=== PATIENT | male | born 1960 | race Caucasian/White ===

== ENCOUNTER 2020-03-27 14:55 | Inpatient (IN) | payer OTHER ==
[~2020-03-27] VITALS: Ht 182.9 cm; Wt 105.8 kg
[2020-03-27] MEDS ORDERED: HYDROXYZINE HCL50 MG PO (15:10)
--- NOTE | 2020-03-27 19:02 | NUR ---
PT HAS CALL LIGHT WITHIN REACH, VERBALIZES UNDERSTANDING OF HOW TO USE IT. TV IS ON IN THE ROOM. PT ABLE TO GABBIE PO ENSURE, DENIES NEED FOR ANYTHING ELSE TO EAT OR DRINK AT THIS TIME. STARR CULLEN AT THE BEDSIDE/ROOM SIDE X2. PT IS IN CORRECTIONAL 5 POINT RESTRAINTS, FLAT HOUSING RELOCATION CUFF STYLE. PT IS COOPERATIVE AND POLITE. PT HAS URINAL AT THE BEDSIDE.
--- NOTE | 2020-03-27 20:30 | NUR ---
PATIENT 02 SAT WAS 88% AND SO PATIENT WAS PLACED ON NC TITRATED TO 2L. O2 SAT INCREASED TO 91%.
--- NOTE | 2020-03-27 20:30 | NUR ---
PATIENT ASSESSMENT COMPLETED AND MEDS GIVEN. PATIENT RESPIRATIONS UNLABORED. IV SITE WNL AND FLUSHED WELL. PATIENT REQUESTED MILK AND STATED HE COULD NOT DRINK WATER BECAUSE IT GOES SOUR. PATIENT ORIENTED TO SELF AND PLACE. DENIED PAIN. PATIENT LEFT RESTING IN BED WITH CALL LIGHT IN REACH.
--- NOTE | 2020-03-27 22:28 | NUR ---
PATIENT VOIDED 375ML OF MINE URINE IN URINAL. PATIENT RESTING WITH EYES CLOSED. RESPIRATIONS EVEN AND UNLABORED.
--- NOTE | 2020-03-27 23:08 | NUR ---
PATIENT CARDIAC LEAD PADS CHANGED. WARM BLANKET AND MILK GIVEN. PATIENT URINAL EMPTIED OF 325 MINE URINE. PATIENT DENIED FURTHER NEEDS AND LEFT RESTING IN BED.
--- NOTE | 2020-03-28 00:15 | NUR ---
PATIENT ASSESSMENT COMPLETED. PATIENT IV SITE WNL. PATIENT SPEECH GARBLED AT TIMES. DENIES PAIN. PATIENT LEFT RESTING IN BED WITH CALL LIGHT IN REACH.
--- NOTE | 2020-03-28 08:18 | NUR ---
IV pump alarming. This nurse in to assess patient. IV fluids restarted, alarm for distal occlusion. IV site flushed. Decadron given as prescribed. Assessment completed. Denies pain at this time. States he does not want breakfast this AM as he is not hungry. [facility] restraints remain in place. Skin integrity remains intact. O2 sats on 2L/min NC O2 of 97%. O2 decreased to 1L/min per NC. Patient educated if he is feeling an increase in shortness of breath or chest tightness to inform staff so we may increase O2 for comfort. Verbalizes understanding. Current O2 sat of 95% on 1L/min of O2.
--- NOTE | 2020-03-28 09:25 | NUR ---
Head of bed elevated. Watching TV. Respirations even and unlabored on 1 L/min NC O2. IV fluids continue infusing. Call light in reach, bed rails elevated.
--- NOTE | 2020-03-28 10:09 | NUR ---
BED BATH COMPLETE. PATIENT GOT HAIR CARE, ORAL CARE, AND OBI CARE. LINENS CHANGED. PATIENT ASKED TO SIT IN CHAIR. CALL LIGHT WITHIN REACH NO FURTHER NEEDS AT THIS TIME.
--- NOTE | 2020-03-28 11:02 | NUR ---
Patient restless in room. Assist to get out of chair to bathroom. COntinent of urine and stool. Flushes, this nurse unable to assess. Returns to bed per request. Upon return to bed, patient O2 saturation 95% on room air as he removed O2 prior to ambulation. O2 left off at this time. Informed patient if O2 saturation decreases or he feels short of breath, O2 will then be replaced. Verbalizes understanding. New bag of IV fluids initiated and rate decreased to 65ml/hr as prescribed. Temp obtained. Denies other needs at this time. Call light in reach, bed rails elevated. Remains in EOCI restraints. Skin under restraints remains intact.
--- NOTE | 2020-03-28 14:05 | NUR ---
Patient lying in bed. Contines to refuse food. Food tray removed per request. Denies pain at this time. Continent of urine, urinal emptied. Assessment completed. Minimal changes from AM assessment. IV fluids continue to infuse at this time. Call light in reach. Bed rails up X2.
--- NOTE | 2020-03-28 14:48 | NUR ---
Sitting up in recliner, watching TV. Remains on room air. Respirations even and unlabored. Call light in reach.
--- NOTE | 2020-03-28 16:59 | NUR ---
Assessment completed. Denies pain. States today is the best he has felt and the most he's been out of bed. States he does not want to eat because there is a rumbling in his stomach, "it's almost like butterflies." Continues to refuse oral intake because he thinks its going to come back up. Denies other needs at htis time. Vitals signs obtained. Call light in reach.
--- NOTE | 2020-03-28 17:50 | NUR ---
Patient up in chair. Encouraged to eat, continues to refuse oral intake including food or drink. IV meds administered. Denies other needs. Remains on room air.
--- NOTE | 2020-03-28 20:00 | NUR ---
PATIENT ASSESSMENT COMPLETED. IV SITE WNL. PATIENT DENIES PAIN. THIS NURSE ENCOURAGED HIM TO EAT OR DRINK AND OFFERED A SEALED DRINK OPTION. PATIENT REFUSED AND STATED "IF I EAT OR DRINK ITS GOING TO COME UP AND I DON'T WANT IT TO". PATIENT DENIED NAUSEA AND REPORTED THAT THERE WAS SOMETHING IN HIS ABDOMEN THAT WOULD COME OUT IF HE ATE OR DRINK ANYTHING. PATIENT REPORTED SWALLOWING WHITE SPUTUM SEVERAL TIMES AFTER COUGHING. EMPTIED 300ML MINE URINE FROM URINAL. PATIENT LEFT RESTING IN BED WITH CALL LIGHT IN REACH.
--- NOTE | 2020-03-28 22:55 | NUR ---
PATIENT AMBULATED INDEPENDENTLY TO THE CHAIR TO WATCH TV. DENIED ANY NEEDS INCLUDING FOOD OR DRINK. PATIENT LEFT RESTING IN CHAIR.
--- NOTE | 2020-03-29 | NUR ---
PATIENT ASSESSMENT COMPLETED. PATIENT DENIED PAIN AND STATED THAT HE CANNOT SLEEP AND FEELS WELL. PATIENT REFUSED FOOD OR DRINK AND STATED THAT HE WOULD BE SICK IF HE ATE. PATIENT GIVEN ZOFRAN. IV SITE WNL AND FLUSHED WELL. PATIENT'S OWN SOCKS REPLACED WITH PAPER BAG MAKER SOCKS. URINAL EMPTIED OF 200ML OF MINE URINE. PATIENT LEFT RESTING IN CHAIR WITH CALL LIGHT IN REACH.
--- NOTE | 2020-03-29 00:54 | NUR ---
PATIENT WAS SHIVERING AND FIRE OFFICER ASKED FOR ASSISTANCE. PATIENT TEMP WAS 98.6. PATIENT STATED THAT HE FELT COLD INSIDE FOR A MINUTE. HE WAS GIVEN A WARM BLANKET AND STATED HE FELT WARMER. PATIENT DENIED PAIN AND ANY FURTHER NEEDS. LEFT RESTING IN BED WITH CALL LIGHT IN REACH.
--- NOTE | 2020-03-29 02:12 | NUR ---
PATIENT IS UP IN THE CHAIR AND REPORTS THAT HE IS NOT TIRED.
--- NOTE | 2020-03-29 03:15 | NUR ---
PT SLEEPING OFF AND ON IN CHAIR. IN IV PUMP ALARMING. PT AWAKENED WHEN NURSE ENTERED ROOM. STATES HE IS FEELING BETTER. FACE IS FLUSHED. T 99.1. SATS 88-89% ON RA, 02 2L LC APPLIED. SATS INC TO MID 90'S SKIN UNDER CORRECTIONAL RESTRAINTS IS INTACT.
--- NOTE | 2020-03-29 07:30 | NUR ---
Report given by Janet HAWKINS, who reports the pt requires intermittent O2 overnight. Pt desats to 88-89% while sleeping. Pt asleep on side the morning. Visualized chest rise and fall.
--- NOTE | 2020-03-29 09:00 | NUR ---
Pt was up in chair this morning and pulled 5-leads, oximeter and took BP cuff off to go to the bathroom. Pt also started pulled at IV and the guard notified Mary HAWKINS, who went into pt's room to assess site. Infiltration noted and left hand blanched and moderately swollen. RN removed IV and reported to this RN. Pt refused breakfast as well.
--- NOTE | 2020-03-29 12:25 | NUR ---
RN asked pt what he would like for lunch, pt refused saying he still feels full from the Ensure he drank for breakfast. RN encouraged him that he needs to try and eat if he's able. Pt still refused.
--- NOTE | 2020-03-29 13:34 | NUR ---
Ordered pt lunch. Pt refused and did not want an Ensure either. Pt started c/o his eyes burning. Used saline flush and pt reported eyes felt better. Pt then stated his stomach still felt "sour" and was really bothering him. He requested we check his "pH". This RN gave Maalox, and will reevaluate symptoms in 1 hr. Pt denies nausea, therefore did not give zofran at this time. Pt is still up in chair. Call light within reach.
--- NOTE | 2020-03-29 14:30 | NUR ---
DUE TO PRECAUTIONS, I AM UNABLE TO VISIT PT AT THIS TIME. WILL FOLLOW
--- NOTE | 2020-03-29 15:15 | NUR ---
Pt started pulling at IV and stated "I don't need this anymore". RN entered room and encouraged pt to leave IV in place and told pt if he's going to refuse oral fluids he really needs the IV fluids. Pt agreed for now, but will keep checking in. Pt seems irritable at times. Still refusing any food because he says "aspartame made me sick." This RN has explained that aspartame is only in sugar-free foods, and there are things he can eat that do not contain it but he still refuses the trays we've brought him.
--- NOTE | 2020-03-29 20:15 | NUR ---
PATIENT ASSESSMENT COMPLETED. PATIENT ATE 2 SHERBETS AND REQUESTED MORE MALOX. PATIENT STATED "MY DNA IS BROKEN AND MALOX RECONFIGURES MY DNA AND LOWERS MY PH. 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 LEFT HAND HAD 2+ PITTING EDEMA FROM EARLIER IV INFILTRATION. IV SITE WNL. PATIENT RECONNECTED TO MONITORS AND LEFT RESTING BED WITH CALL LIGHT IN REACH.
--- NOTE | 2020-03-29 23:51 | NUR ---
PATIENT ASSESSMENT COMPLETED. WHEN ASKED WHY HE WAS IN THE HOSPITAL, PATIENT STATED "BECAUSE OF POISONING". PATIENT EDUCATED ON CURRENT ILLNESS. REFUSED WATER, BUT AGREED TO HAVE AN ENSURE. SKIN INTACT UNDER 5 POINT RESTRAINTS. URINAL EMPTIED OF 325ML MINE URINE AND PATIENT STATED HE AMBULATED TO THE BATHROOM FOR UNMEASURED VOID EARLIER. AFEBRILE AND DENIES PAIN. PATIENT LEFT RESTING IN BED, WATCHING TV WITH CALL LIGHT IN REACH.
--- NOTE | 2020-03-30 00:40 | NUR ---
CARDIAC LEADS REMOVED AND TURNED OFF. PATIENT RESTING IN BED WITH EYES CLOSED. LEFT RESTING IN BED WITH CALL LIGHT IN REACH.
--- NOTE | 2020-03-30 05:10 | NUR ---
PATIENT LABS DRAWN AND ASSESSMENT COMPLETED. DENIES PAIN. 250ML YELLOW URINE EMPTIED FROM URINAL. WHEN ASKED WHY HE WAS IN THE HOSPITAL, PATIENT STATED "I WAS TOLD LIU VIRUS, BUT I THINK IT'S BECAUSE MY STOMACH IS SOUR". PATIENT REQUESTED MAALOX AND STATED IT HELPED HIS SALIVA TURN INTO WATER. AT TIMES HAD GARBLED SPEECH THAT WAS INCOHERENT. PATIENT DRANK ENSURE AND AND REQUESTED BREAKFAST. LEFT RESTING IN BED WITH CALL LIGHT IN REACH.
--- NOTE | 2020-03-30 07:55 | NUR ---
PT UP TO BATHROOM. VOIDED 300 MLS OF MINE URINE. REPORTS HE SLEPT WELL LAST NIGHT. PO INTAKE HAS IMPROVED. EATING ICE CREAM AND DRINKING ENSURES. VSS. PT IS WITHOUT COMPLAINT AT THIS TIME. CALL LIGHT WITHIN REACH.
--- NOTE | 2020-03-30 09:30 | NUR ---
Pt's appetite has much improved. He ate 100% of a large breakfast and drank 240 mls of the milk on his tray. On 1 L O2 NC sating mid 90's. Lungs are clear. VSS. Active bowel tones. Voiding well. Independent in room. Pt remains without complaint at this time.
--- NOTE | 2020-03-30 10:18 | NUR ---
PT RRECEIVING TREATMENT FOR COVID-19, UNABLE TO VISIT. [facility] GUARDS AT DOOR. WILL FOLLOW ABLE
--- NOTE | 2020-03-30 10:30 | NUR ---
Lab called at 1025 to report positive blood cultures (growth of gram+ cocci in clusters from aerobic bottle). Results called to Dr. Tong at 1027, who ordered blood cultures redrawn.
--- NOTE | 2020-03-30 11:00 | NUR ---
Blood cultures redrawn and sent to lab. Site 1 drawn from LFA with 22 g IV start. Site 2 from LAC. Pt tolerated well.
--- NOTE | 2020-03-30 14:00 | NUR ---
Update from Rn and Dr. Tong. Plan for dc tomorrow. Pt is on . Will receive last dose of remdesivir in AM.
--- NOTE | 2020-03-30 16:22 | NUR ---
Called and updated Adriana at [facility]. She said to plan for midmorning dc. She will call me if there is a change, but pt is good to return [facility] tomorrow midmorning.
--- NOTE | 2020-03-30 17:21 | NUR ---
Pt has been up in chair all afternoon watching television. Took pt tray in. LR running at 75 mls/hr. Pt is without complaint. Call light within reach.
--- NOTE | 2020-03-30 20:00 | NUR ---
V/S ARE WDL, ALL LOBES ARE CLEAR BUT DIMINISHED, URINE OUTPUT IS GOOD, PT ON RA, NO NEW ISSUES NOTED.
--- NOTE | 2020-03-30 21:35 | NUR ---
PT MOVED TO ROOM 117. REPORT GIVEN TO LUIS HAWKINS.
--- NOTE | 2020-03-30 21:45 | NUR ---
Patient arrives to unit via hospital bed. Vital signs taken, assessment complete. Fluids infusing at 75 mls/hr. Patient denies pain or SOB. Patient on RA with an SpO2 of 94%. Patient oriented to room, fresh water provided. One district fire management officer in room at bedside, five-point restraints in place. Call light within reach.
--- NOTE | 2020-03-30 23:20 | NUR ---
Patient laying in bed watching tv. Fluids infusing at 75 mls/hr. Five-point correctional restraints in place, one division officer weapons department in room at bedside. Patient on RA, SpO2 of 94%. Denies needs, call light within reach.
--- NOTE | 2020-03-31 01:02 | NUR ---
Patient sleeping in bed on left side, respirations even and unlabored. Patient on RA with an SpO2 of 94%. Five-point restraints in place, two correctional sitting outside of room. Fluids infusing at 75 mls/hr. Call light within reach.
--- NOTE | 2020-03-31 02:00 | NUR ---
Patient sleeping in bed on left side, respirations even and unlabored. Patient on RA, SpO2 of 95%. Five-point restraints in place, two correctional officers sitting outside of room. Fluids infusing at 75 mls/hr, call light within reach.
--- NOTE | 2020-03-31 03:29 | NUR ---
Patient sleeping in bed, respirations even and unlabored. New bag of LR hung, infusing at 75 mls/hr. Urinal emptied of 900 mls of yellow urine. Five-point restraints in place, one police officer booking in room at bedside. Call light within reach.
--- NOTE | 2020-03-31 04:53 | NUR ---
Patient laying in bed watching tv. SpO2 of 93% on RA. Five-point restraints in place, two correctional officers sitting outside of room. Call light within reach.
--- NOTE | 2020-03-31 05:30 | NUR ---
Patient sleeping in bed, respirations even and unlabored. SpO2 of 94% on RA. Rouses easily to voice. Vital signs taken, assessment complete. Lung sounds dim in bases. Blood drawn and sent off to lab. Fluids infusing at 75 mls/hr. Five-point restraints in place, one banking services officer in room at bedside. Urinal emptied with 475 mls of yellow urine. Patient denies needs at this time, call light within reach.
--- NOTE | 2020-03-31 09:10 | NUR ---
Call from Adriana at [facility], pt can return to [facility] today. This phone call was followed by a phone call from Jeanie Reeves at [facility]. Updated given and as pt is no longer on he can return to [facility]. Plan to dc midmorning following remdesivir and visit by . Meena will call nurse to nurse report. Call from Adriana stating pt, can return to [facility]. Nurses updated and will call report.
--- NOTE | 2020-03-31 09:28 | NUR ---
this rn in pts room to give morning meds and to do morning assessment. pt more worried about if his iv flushes than anything else this am. pt states he has no shortness of breath at this time. oxygenation 95% on room air.
[2020-03-31] MEDS ORDERED: DEXAMETHASONE6 MG PO (10:13)
[2020-03-31] MEDS ORDERED: MAALOX MAXIMUM355 ML PO (10:15)
== END 2020-03-31 11:10 | disposition home or self-care (01) | DRG 177 ==
LOC: ED 14:55 → CCU 17:31 → MS 03-30 21:45
PROVIDERS: ADMIT Internal Medicine; ATTEND Internal Medicine
PROC: XW033E5 Introduction of Remdesivir Anti-infective into Peripheral Vein, Percutaneous Approach, New Technology Group 5 (ICD-10-PCS; principal; 2020-03-27)
PROC: XW033E5 Introduction of Remdesivir Anti-infective into Peripheral Vein, Percutaneous Approach, New Technology Group 5 (ICD-10-PCS; 2020-03-28)
PROC: XW033E5 Introduction of Remdesivir Anti-infective into Peripheral Vein, Percutaneous Approach, New Technology Group 5 (ICD-10-PCS; 2020-03-29)
PROC: XW033E5 Introduction of Remdesivir Anti-infective into Peripheral Vein, Percutaneous Approach, New Technology Group 5 (ICD-10-PCS; 2020-03-30)
PROC: XW033E5 Introduction of Remdesivir Anti-infective into Peripheral Vein, Percutaneous Approach, New Technology Group 5 (ICD-10-PCS; 2020-03-31)
DX: U07.1 COVID-19 (principal); J12.89 Other viral pneumonia; F99 Mental disorder, not otherwise specified; D69.6 Thrombocytopenia, unspecified; H91.90 Unspecified hearing loss, unspecified ear; Z79.899 Other long term (current) drug therapy
CPT/HCPCS: 71045; 80053; 83036; 83605; 83880; 85025; 85379; 96361; 96374; 99285-25; J1100; J1650; J2405; J7030; J7050; J7121